=== PATIENT | female | born 1975 | race African-American/Black ===

== ENCOUNTER 2017-03-02 02:11 | Emergency (ER) | payer MEDICAID ==
[~2017-03-02] VITALS: Ht 170.2 cm; Wt 81.0 kg
[2017-03-02] MEDS ORDERED: METHYLPREDNISOLONE SOD SUCC 125 MG/2 ML VIAL IV STA (03:25)
[2017-03-02] MEDS ORDERED: MAGNESIUM 2 G PREMIX 50 ML IV STA (03:25)
[2017-03-02] MEDS ORDERED: IPRATROPIUM BROMIDE (0.02%) 0.5MG/2.5ML NEB HHN STA (03:25)
[2017-03-02] MEDS ORDERED: ALBUTEROL (0.083%) 2.5MG/3ML NEB HHN STA (03:25)
[2017-03-02] MEDS ORDERED: ALBUTEROL (0.5%) 2.5MG/0.5ML NEB HHN ONE (03:43)
[2017-03-02 05:33] VITALS: BP 173/97
== END 2017-03-02 06:59 | disposition home or self-care (01) ==
LOC: ER 02:22
DX: R06.02 Shortness of breath (principal); J45.909 Unspecified asthma, uncomplicated; F17.200 Nicotine dependence, unspecified, uncomplicated; Z98.890 Other specified postprocedural states
CPT/HCPCS: 71010; 96365; 96375; 99284; J2930; J3475; J7611; Z7610